=== PATIENT | female | born 1970 | race Caucasian/White ===

== ENCOUNTER 2023-12-15 10:42 | Inpatient (IN) | payer BC, OTHER ==
[2023-12-15] MEDS ORDERED: Ondansetron PF 4 MG/2 ML Vial IVP PRN (18:34)
[2023-12-15] MEDS ORDERED: traMADol HCl 50 MG TAB PO PRN (18:34)
[2023-12-15] MEDS ORDERED: Ondansetron ODT 4 MG TAB PO PRN (18:34)
[2023-12-15 19:01] VITALS: BMI 34.7
[2023-12-15 20:39] LABS: Actual Bicarbonate (HCO3v) 20.7 mEq/L (22-28); Analyzer IN Cardio CS ER; Base Excess -3.3 mEq/L (-2 - +2); Calcium, Ionized (venous) 1.17 mmol/L (1.16-1.32); Chloride (VBG) 104 mmol/L (98-106); Critical Notified By: CP.PH; Hematocrit-VBG 44 % (36.0-47.0); Hemoglobin (Hb) 14.8 g/dL (11.7-16.0); Potassium (VBG) 3.25 mmol/L (3.70-5.30); Puncture Site Other Site; RapidComm Collect By LAB.CO; Sodium 141 mmol/L (133-146); pH (venous) 7.398 (7.32-7.43)
[2023-12-15] MEDS: Famotidine 20 MG TAB PO SCH (20:45)
[2023-12-15] MEDS: Acetaminophen 325 MG TAB PO PRN (20:45)
[2023-12-15] MEDS: Propafenone HCl 150 MG TAB PO SCH (20:45)
[2023-12-15] MEDS: Apixaban 5 MG TAB PO SCH (20:45)
[2023-12-15 21:03] LABS: Troponin I Less than 0.010 ng/mL (< 0.028)
[2023-12-15 22:58] LABS: Potassium 3.2 mmol/L (3.5-5.1)
[2023-12-15] MEDS ORDERED: Acetaminophen 325 MG TAB PO SCH (23:59)
[2023-12-16 03:24] LABS: #Basophils 0.03 10x3/uL (0.0-0.2); #Eosinphils 0.04 10x3/uL (0.0-0.5); #Monocytes 0.99 10x3/uL (0.0-1.1); #Neutrophils 7.53 10x3/uL (1.5-8.4); %Basophils 0.2 % (0.0-2.0); %Eosinophils 0.3 % (0.0-6.0); %Lymphocytes 31.4 % (18.0-47.0); %Monocytes 7.9 % (0.0-10.0); %Neutrophils 59.8 % (40.0-75.0); Hematocrit 40.4 % (34.9-44.5); Hemoglobin 13.8 g/dL (12.0-15.5); Mean Corpuscular HGB CONC 34.2 g/dL (32.0-36.0); Mean Corpuscular Hemoglobin 29.6 pg (27.0-33.0); Mean Corpuscular Volume 86.7 fL (81.6-98.3); Mean Platelet Volume 9.1 fL (7.4-10.4); Platelet Count 324 10x3/uL (150-450); RBC Distribution Width 12.5 % (11.5-14.5); Red Blood Cell (RBC) Count 4.66 10x6/uL (3.90-5.03); White Blood Cell (WBC) Count 12.6 10x3/uL (3.5-10.5)
[2023-12-16 03:47] LABS: ALT (SGPT) 17 U/L (8-55); AST (SGOT) 14 U/L (5-34); Albumin 3.4 g/dL (3.5-5.0); Alkaline Phosphatase 41 U/L (40-110); Anion Gap 9 mmol/L (10-20); BUN (Urea Nitrogen) 11 mg/dL (9.8-20.1); Bilirubin, Total 0.4 mg/dL (0.2-1.2); Calc. Creatinine Clearance 151 mL/min (70-130); Calcium 8.7 mg/dL (7.8-10.44); Carbon Dioxide 24 mmol/L (22-29); Chloride 108 mmol/L (98-107); Estimated GFR 101; Glucose 98 mg/dL (70-105); Potassium 3.4 mmol/L (3.5-5.1); Protein, Total 6.4 g/dL (6.0-8.3); Sodium 138 mmol/L (136-145)
[2023-12-16] MEDS: Potassium Chloride 20 MEQ TAB PO SCH (03:51)
[2023-12-16] MEDS: Venlafaxine HCl XR 75 MG CAP PO SCH (04:12)
[2023-12-16] MEDS ORDERED: Venlafaxine HCl XR 75 MG CAP PO SCH (09:00)
[2023-12-16] MEDS: Fluticasone Propionate Nasal Spray 16 gm Bottle NASAL SCH (09:21)
[2023-12-16] MEDS: Loratadine 10 MG TAB PO SCH (09:22)
[2023-12-16] MEDS: Pantoprazole DR 40 MG TAB PO SCH (09:22)
[2023-12-16 12:52] VITALS: BP 115/75; TEMP 98.4
[2023-12-17] MEDS ORDERED: Venlafaxine HCl XR 75 MG CAP PO SCH (09:00)
== END 2023-12-16 14:15 | disposition home or self-care (01) | DRG 310 ==
LOC: CSHTELE 18:14 → OBSVTOIN 18:34
PROVIDERS: ADMIT Internal Medicine; ATTEND Internal Medicine
DX: I48.0 Paroxysmal atrial fibrillation (principal); R19.7 Diarrhea, unspecified; J30.2 Other seasonal allergic rhinitis; I10 Essential (primary) hypertension; E66.9 Obesity, unspecified; D72.829 Elevated white blood cell count, unspecified; K21.9 Gastro-esophageal reflux disease without esophagitis; F32.A Depression, unspecified; E66.3 Overweight; Z68.34 Body mass index [BMI] 34.0-34.9, adult; Z88.2 Allergy status to sulfonamides; Z79.01 Long term (current) use of anticoagulants; Z79.899 Other long term (current) drug therapy; Z90.710 Acquired absence of both cervix and uterus
CPT/HCPCS: 36415; 71045; 80053; 82805; 83735; 83880; 84132; 84443; 84484; 85025; 93005; 93010; 93306